=== PATIENT | male | born 1940 | race Caucasian/White ===

== ENCOUNTER → 2016-11-08 | Outpatient (CLI) | payer OTHER, MEDICARE | LOC: MMPC 11:11 | PROVIDERS: ATTEND Internal Medicine | DX: I10 Essential (primary) hypertension (principal); E78.5 Hyperlipidemia, unspecified; R60.0 Localized edema; Z86.718 Personal history of other venous thrombosis and embolism | CPT/HCPCS: 99214; G0463 ==

== ENCOUNTER 2017-10-18 12:52 | Inpatient (IN) ==
[2017-10-18] MEDS ORDERED: NORMAL SALINE 10 ML SYRINGE FLUSH IVP PRN ×2 (13:19→18:06)
[2017-10-18] MEDS ORDERED: ALBUTEROL SULFATE 2.5 MG/3 ML NEB PRN (13:19)
[2017-10-18 13:29] LABS: BASOPHILS # (AUTO) 0.02 10*3/UL; BASOPHILS % (AUTO) 0.2 % (0-1); EOSINOPHILS # (AUTO) 0.08 10*3/UL; EOSINOPHILS % (AUTO) 0.7 % (0-8); Hematocrit [HCT] 43.9 % (42.0-52.0); Hemoglobin [HGB] 15.3 g/dL (14.0-18.0); LYMPHOCYTES # (AUTO) 1.91 10*3/uL; MEAN CORPUSCULAR HEMOGLOBIN 35.3 PG (27-31); MEAN CORPUSCULAR HGB CONC 34.9 g/dL (33-37); MEAN CORPUSCULAR VOLUME 101.4 FL (80-90); MEAN PLATELET VOLUME 11.4 FL (7.4-12.2); MONOCYTES # (AUTO) 1.56 10*3/UL (0.3-0.8); MONOCYTES % (AUTO) 13.1 % (5-15); NEUTROPHILS # (AUTO) 8.24 10*3/UL; NEUTROPHILS % (AUTO) 69.2 % (50-80); RED BLOOD COUNT 4.33 10^6/uL (4.70-6.10)
[2017-10-18 13:30] LABS: PLATELET MORPHOLOGY COMMENT NORMAL MORPHOLOGY (NORM); RBC MORPHOLOGY COMMENT NORMAL MORPHOLOGY (NORM)
[2017-10-18 13:33] LABS: BLOOD UREA NITROGEN 18 mg/dL (7-22); SERUM ALBUMIN 4.1 g/dL (3.5-4.8)
--- NOTE | 2017-10-18 13:38 | EKG ---
[address] [address] Measurements Intervals [place] Rate: 98 P: 35 ME: 169 QRS: 117 QRSD: 152 T: -6 QT: 359 QTc: 415 Interpretive Statements SINUS RHYTHM RIGHT BUNDLE BRANCH BLOCK [120+ ms QRS DURATION, UPRIGHT V1, 40+ ms S IN I/aVL/V4/V5/V6] LEFT POSTERIOR FASCICULAR BLOCK [QRS AXIS > 109, INFERIOR Q] MODERATE T-WAVE ABNORMALITY, CONSIDER ANTEROLATERAL ISCHEMIA [-0.1+ mV T WAVE IN V3-V6] Compared to ECG 07/07/2014 10:03:43 T-wave abnormality now present Possible ischemia now present Indeterminate axis no longer present Electronically Signed On 10-19-17 10:23:17 MDT by Roberto Henry MD [id number]
[2017-10-18 13:45] LABS: WBC MORPHOLOGY COMMENT SEE COMMENTS (NORM)
[2017-10-18 13:48] LABS: VENOUS PH 7.43 (7.32-7.42)
--- NOTE | 2017-10-18 14:27 | DI ---
PA /LATERAL CHEST, 10/18/2017 1:19 PM : Clinical History: Dyspnea. Previous Exam: 01/04/2010. There is no acute soft tissue or bony abnormality. There is cardiomegaly without CHF. A small left pl eural effusion is present along with bibasilar atelectasis. Mediastinal structures are normal. There are no pulmonary nodules. Reading: Left lower lobe atelectasis with a small left pleural effusion. There is also mild right lower lobe a telectasis.
[2017-10-18] MEDS ORDERED: ENOXAPARIN SODIUM 100 MG/1 ML SYRINGE SUBCUT ONE (16:37)
--- NOTE | 2017-10-18 16:59 | DI ---
CT ANGIOGRAM OF THE CHEST, 10/18/2017 2:57 PM : Clinical History: Dyspnea. Elevated D-dimer test. Previous Exam: None at this facility. Scans are performed from the base of the neck to the lower lung bases with IV contrast. 65 mL of Isov ue 370 was injected IV. Proprietary automated bolus tracking software was used to verify the timing o f the injection. The base of the neck and thoracic inlet are normal. There are no abnormal axillary, supraclavicular, mediastinal, or hilar nodes. There is dilatation of the right heart in the right ventricular chamber sizes larger than the left. Coronary artery calcifications are present in the LAD, left circumflex ar braydon, and the right coronary artery. There is pulmonary arterial hypertension with evidence of pulmon ravin emboli in both main pulmonary arteries and branches to all lobes. There is a "saddle embolus" of small caliber in the main right and left pulmonary artery branches. There is a small left pleural eff usion with a wedge-shaped infiltrate that is pleural-based in the lingular segment and in what probab ly is the left posterobasal segment, consistent with pulmonary infarcts. There is a low-density 3 cm lesion in the dome of the right lobe of the liver posteriorly consistent with a cyst. The adrenal gla nds and the spleen are normal. READIN. Acute pulmonary embolism with presence of emboli in both main pulmonary arteries and all branches to the lungs bilaterally with pulmonary arterial hypertension and dilatation of the right ventricle. This would suggest acute cor pulmonale. There are pulmonary infarcts in the left lower lobe and ling ular segment. 2. Coronary artery disease with punctate calcifications in the LAD, right coronary artery, left circ umflex artery. 3. 3 cm cyst of the right lobe of the liver.
--- NOTE | 2017-10-18 17:26 | DI ---
VENOUS DOPPLER ULTRASOUND OF BOTH LOWER EXTREMITIES, 10/18/2017 3:06 PM: Clinical History: Leg swelling. Elevated D-dimer test. The patient does have pulmonary embolism with infarction. Previous Exam: Comparison is made with a venous Doppler ultrasound of the left lower terminate from . Technique: 2D real-time imaging is supplemented with color Doppler ultrasound. Compression and augmen tation maneuvers were performed. The deep venous system from the groin to the popliteal fossa for the right leg is normal. The right g reater saphenous vein is also normal. There is edema of the subcutaneous fat in the lower leg. There is acute clot in the left superficial femoral vein from the groin to the popliteal vein. On the previous exam, there was evidence of chronic clot in the region of the popliteal vein, but the super ficial femoral vein was normal from Deep's canal to the groin. There is edema in the subcutaneous t issues in the lower leg. The greater saphenous vein is patent. Readin. There is acute clot from Deep's canal to the groin in the left superficial femoral vein, and th is is new since the previous exam. 2. No clot is seen in the deep venous system of the right leg from the groin to the popliteal fossa.
[2017-10-18 17:39] VITALS: RESP 36; TEMP 98.9
[2017-10-18 17:44] VITALS: BP 130/77
[2017-10-18] MEDS ORDERED: CALCIUM CARBONATE 500 MG (TUMS) CHEWABLE TABLET PO PRN (18:06)
[2017-10-18] MEDS ORDERED: LIDOCAINE W/ SODIUM BICARB 0.5 ML SYR SUBD PRN (18:06)
--- NOTE | 2017-10-18 18:11 | PDOC ---
HPI - History of Present Illness Date of Service: 10/18/17 Time of Service: 18:00 Chief Complaint: Shortness of breath of 3-4 weeks duration, swelling in the left leg of 3 days duration History of Present Illness: This is a 76 years old male with medical history significant for history of psoriasis, hypercholesterolemia and history of for DVT back in 2014 was on Xarelto for a year and a half, now just on an aspirin who presented to the hospital with history of shortness of breath that started about 3-4 weeks progressively getting worse with exertion. Now he said he would walk 60 feet and he feels short of breath and need to stop. Did report some chest pain on felt in the left side of the chest worse with taking deep breath. In addition he did note his the last few days some sweling in the left leg. Because of all the symptoms he came into the ER in the ER he was found to have bilateral PE and pulmonary infarct on the left in addition he had DVT in the left leg was giving Lovenox and he was admitted. He said he feels better compared to when he came in his breathing is better after they started him on the oxygen. He is denying other symptoms. Past Medical History Medical History: 1. History of for left DVT in 2014 was on Xarelto for a year and a half. This was DC'd and replaced with aspirin 325 mg a day. 2. History of psoriasis. 3. Hypercholesterolemia. 4. Hypertension however he is not on medications now Surgical History: 1. History of cataract surgery Family History: Reviewed an Not Pertinent Past Social History: A small, no drugs doesn't drink. 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 Tobacco Use: Never Smoker In the Past 12 Months, Have Used or Abuse Any of the Following Substance: None Alcohol Use: None Medication / Allergies Home Medications: Home Medications 3 Medication Instructions Recorded Confirmed Type hydrocodone 5 mg-acetaminophen 325 1 - 2 tab PO Q4H PRN #60 tab 05/10/17 Rx mg tablet ramipril 10 mg capsule 10 mg PO BID #180 cap 05/10/17 10/18/17 Rx Ixekizumab [Taltz Syringe] 80 mg IM WEEKLY 10/18/17 10/18/17 History Rosuvastatin Calcium [Crestor] 5 mg PO DAILY 10/18/17 10/18/17 History Allergies/Adverse Reactions: Allergies 3 Allergy/AdvReac Type Severity Reaction Status Date / Time No Known Allergies Allergy Verified 10/18/17 12:54 Review of Systems - Review of Systems All Systems: Reviewed & No Additional Complaints Except as Stated Exam - Vitals Vital Signs: Vital Signs Temperature 98.9 F Temperature Source Temporal Artery Scan Pulse Rate [Pulse Oximeter 87 Right] Pulse Rate 87 Respiratory Rate 36 Blood Pressure [Left Arm] 130/77 Blood Pressure 101/68 Pulse Ox 92 Oxygen Flow Rate 2.5 Oxygen Delivery Method Nasal Cannula Height 5 ft 10 in Weight 207 lb 12.8 oz - General General Appearance: No Acute Distress, Cooperative, Obese - Head Head Exam: Normal Inspection, Atraumatic - Eye Eye Exam: POSITIVE: Normal Appearance - ENT ENT Exam: POSITIVE: Normal Exam - Neck Neck Exam: Normal Inspection - Respiratory Respiratory Exam: POSITIVE: Clear to Auscultation - Bilaterally - Cardiovascular Cardiovascular Exam: POSITIVE: RRR - GI/Abdominal GI/Abdominal Exam: POSITIVE: Normal Bowel Sounds, Non Tender, Non Distended, Soft, No Organomegaly - Rectal Rectal Exam: POSITIVE: Deferred - External Exam: POSITIVE: Deferred Exam: POSITIVE: Deferred - Extremities Additional Extremities Exam Details: Edema noted in both legs swelling more in the left compared to the right. - Back Back Exam: POSITIVE: Normal Inspection - Neurological Neurological Exam: POSITIVE: Alert, Oriented x 3, CN II-XII Intact, Moves All Extremities Equally - Psychiatric Psychiatric Exam: POSITIVE: Normal Affect - Integumentary Additional Integumentary Exam Details: Thin skin noted with multiple bruises noted in the upper extremities. Also some bruising noted on the chest. He said these happen to him frequently. Results - Labs CBC and BMP: 10/18/17 13:29 10/18/17 13:29 Assessment and Plan - Patient Problems (1) Bilateral pulmonary embolism Current Visit: Yes Status: Acute Comment: He received Lovenox in the ER, I looked at his CT and with elevated the BNP and troponin he would probably fall into the category of submassive PE. His blood pressure though is more than 90 systolic, he is denying dizziness or lightheadedness. He does not appear in distress. We will order an echocardiogram for him tomorrow. I think I will continue with the Lovenox. But I will discuss it with the pulmonology in [place] and see if they have other opinion. Code(s): I26.99 - Other pulmonary embolism without acute cor pulmonale (2) DVT (deep venous thrombosis) Current Visit: No Status: Acute Comment: He received Lovenox will continue with it. See discussion above. Code(s): I82.409 - Acute embolism and thrombosis of unspecified deep veins of unspecified lower extremity (3) Hypercholesterolemia Current Visit: Yes Status: Acute Comment: Continue Crestor Code(s): E78.00 - Pure hypercholesterolemia, unspecified
[2017-10-18] MEDS ORDERED: ACETAMINOPHEN 325 MG TABLET PO PRN (18:26)
[2017-10-18 18:58] VITALS: O2SAT 94
--- NOTE | 2017-10-18 19:27 | DCSUMMARY ---
Hospitalization Summary Admit Date: 10/18/2017 Discharge Date: 10/18/17 Hospital Course: Transfer diagnoses 1. Acute pulmonary embolism with presence of emboli in both main pulmonary arteries and all branches to the lungs bilaterally 2. Pulmonary arterial hypertension and dilatation of the right ventricle suggests an acute cor pulmonale 3. Pulmonary infarcts in the left lower lobe and lingular segment 4. Acute clot from Deep's canal to the groin in the left superficial femoral vein, and this is new. 5. History of previous DVT 6. History of psoriasis 7. History of hypertension Hospital course This is a 76 years old male with medical history significant for history of psoriasis, hypercholesterolemia and history of for DVT back in 2014 was on Xarelto for a year and a half, now just on an aspirin who presented to the hospital with history of shortness of breath that started about 3-4 weeks progressively getting worse with exertion. Now he said he would walk 60 feet and he feels short of breath and need to stop. Did report some chest pain on felt in the left side of the chest worse with taking deep breath. In addition he did note his the last few days some sweling in the left leg. Because of all the symptoms he came into the ER in the ER he was found to have bilateral PE and pulmonary infarct on the left in addition he had DVT in the left leg was given Lovenox and he was admitted. He said he feels better compared to when he came in his breathing is better after they started him on the oxygen. He is denying other symptoms. When I saw him he did not appear in distress he was hemodynamically stable he was on 2 L of oxygen. I did review the CT and there is large clot burden with saddle component to the PE, in addition there is dilatation of the right ventricle, there is also DVT. Because of all these findings I did speak with the science job titles at [facility] and she recommended an IVC filter because of the large clot burden. Unfortunately we don't do this procedure here so I spoke with the patient about transfer and he agreed. I did speak with the hospitalist Dr. Hazel and she accepted the patient and the patient will be transferred there. Abnormal Lab Results (Last 24 Hours) Range/Units 10/18/17 10/18/17 10/18/17 13:09 13:22 13:29 WBC (4.8-10.8) 10^3/uL RBC (4.70-6.10) 10^6/uL MCV (80-90) FL MCH (27-31) PG [place] # (Auto) (0.3-0.8) 10*3/UL D-Dimer (0.00-0.59) mg/L VBG pH (7.32-7.42) 7.43 H VBG pCO2 (45-55) mmHg 31 L VBG HCO3 (22-26) mmol/L 21 L VBG Base Excess (-2-2) MMOL/L -4 L Potassium (3.8-5.2) meq/L Chloride (98-112) meq/L Carbon Dioxide (23-33) meq/L Glucose (78-110) mg/dL Total Bilirubin (0.3-1.2) mg/dL AST (21-57) IU/L Troponin I (< 0.040) ng/mL 0.066 H C-Reactive Protein (0.0-0.9) mg/dL 22.2 H NT-Pro-B Natriuret Pep (0-450) PG/ML 4560 H Range/Units 10/18/17 10/18/17 10/18/17 13:29 13:29 13:29 WBC (4.8-10.8) 10^3/uL 11.89 H RBC (4.70-6.10) 10^6/uL 4.33 L MCV (80-90) FL 101.4 H MCH (27-31) PG 35.3 H [place] # (Auto) (0.3-0.8) 10*3/UL 1.56 H D-Dimer (0.00-0.59) mg/L 5.34 H VBG pH (7.32-7.42) VBG pCO2 (45-55) mmHg VBG HCO3 (22-26) mmol/L VBG Base Excess (-2-2) MMOL/L Potassium (3.8-5.2) meq/L 3.6 L Chloride (98-112) meq/L 97 L Carbon Dioxide (23-33) meq/L 22 L Glucose (78-110) mg/dL 119 H Total Bilirubin (0.3-1.2) mg/dL 1.3 H AST (21-57) IU/L 15 L Troponin I (< 0.040) ng/mL C-Reactive Protein (0.0-0.9) mg/dL NT-Pro-B Natriuret Pep (0-450) PG/ML Transfer instruction Diet regular Activity bedrest Medications Active Medications Acetaminophen (Tylenol) 650 mg PO Q6H PRN PRN Reason: Pain Atorvastatin Calcium (Lipitor) 10 mg PO BEDTIME [place] Calcium Carbonate (Tums) 1 - 2 tab PO QID PRN PRN Reason: Heartburn Enoxaparin Sodium (Lovenox Inj) 100 mg SUBCUT Q12H [place] Sodium Chloride (Normal Saline 0.9%) 25 mls @ 200 mls/hr IV .Post Infusion PRN PRN Reason: Flush Lidocaine HCl (Lidocaine Buffered Inj) 0.5 ml SUBD ONCE PRN PRN Reason: IV Starts Sodium Chloride (Saline Flush) 5 - 20 ml IVP BID PRN PRN Reason: Flush Condition at transfer stable for transfer Exam - Vitals Vital Signs: Vital Signs Temperature 98.9 F Temperature Source Temporal Artery Scan Pulse Rate [Pulse Oximeter 87 Right] Pulse Rate 87 Respiratory Rate 36 Blood Pressure [Left Arm] 130/77 Blood Pressure 101/68 Pulse Ox 94 Oxygen Flow Rate 2.5 Oxygen Delivery Method Nasal Cannula Height 5 ft 10 in Weight 207 lb 12.8 oz Patient Problems - Patient Problem List (1) Bilateral pulmonary embolism Current Visit: Yes Status: Acute Code(s): I26.99 - Other pulmonary embolism without acute cor pulmonale Category: Medical (2) DVT (deep venous thrombosis) Current Visit: No Status: Acute Code(s): I82.409 - Acute embolism and thrombosis of unspecified deep veins of unspecified lower extremity Category: Medical (3) Hypercholesterolemia Current Visit: Yes Status: Acute Code(s): E78.00 - Pure hypercholesterolemia , unspecified Category: Medical
[2017-10-18] MEDS ORDERED: ATORVASTATIN 10 MG TABLET PO SCH (21:00)
--- NOTE | 2017-10-19 03:00 | PDOC ---
Dyspnea HPI - General Chief Complaint: Dyspnea Stated Complaint: short of breath Date Seen by Provider: 10/18/17 Time Seen by Provider: 13:10 Source: POSITIVE: Patient, Spouse Exam Limitations: POSITIVE: No limitations Treatment Prior to Arrival: REPORTS: None Nurse's Notes Reviewed & Considered: Yes - History of Present Illness Initial Comments: The patient is a 76-year-old male. He presents to the emergency room along with his . He states that for the last 3 days he has had some dyspnea, especially with exertion. He also complains of some discomfort in the left scapular area. He furthermore complains of some discomfort to the left lower leg and some bilateral pedal edema. Patient states that he was treated for a left leg deep vein thrombosis 3 years ago. No fevers or chills. No known cardiac problems. He takes 325 mg of aspirin daily. He takes Ramapril for hypertension. He also takes Crestor. He does not smoke Body Location Affected: REPORTS: Lower Extremity (L), Lower Extremity (R), Chest Timing: REPORTS: Constant Duration: >24 hours (3 days) Severity: Moderate Quality: REPORTS: "Pain" (Some left subscapular discomfort. Pain left lower leg ) Initiating Event: DENIES: Upper Respiratory Illness, Out of Medications, Sports , Exercise, Aspiration, Choking, Allergy, Exposure - Smoke, Exposure - Mold, Exposure - Other Allergen Context: REPORTS: Exertion (Dyspnea with exertion). DENIES: Sleep, Rest, Emotional Upset, Activity, Other Exacerbated By: REPORTS: Exertion Associated Symptoms: REPORTS: Leg Pain (Left greater than right), Leg Swelling ( Left greater than right). DENIES: Fever, Chills, Sweating, Chest Pain, Chest Discomfort, Left Chest, Right Chest, Central Chest, Chest Heaviness, Chest Tightness, Painful Breathing, Radiation to Back, Radiation to Jaw, Radiation to Arm, Bloody Cough, Productive Cough, Heart Racing, Calf Pain, Ankle Swelling, Dizziness, Light-Headedness, Anxiety, Tingling - Hands, Tingling - Face, Muscle Spasms - Hands, Muscle Spasms - Feet Similar Symptoms Previously: Yes Recently seen/treated/hospitalized: No Any Prior Injuries Related to Current Complaint?: No - Patient Home Medications Home Medications: Home Medications hydrocodone 5 mg-acetaminophen 325 mg tablet 1 - 2 tab PO Q4H PRN #60 tab ramipril 10 mg capsule 10 mg PO BID #180 cap 05/10/17 Ixekizumab [Taltz Syringe] 80 mg IM WEEKLY 10/18/17 Rosuvastatin Calcium [Crestor] 5 mg PO DAILY 10/18/17 - Patient Allergies Allergies/Adverse Reactions: Allergies 3 Allergy/AdvReac Type Severity Reaction Status Date / Time No Known Allergies Allergy Verified 10/18/17 12:54 Past Medical History - heen HEENT History: Denies History Cardiovascular History: Hypertension, Hyperlipidemia, Other (please comment) Additional Cardiovasular History: RIGHT BBB AND IRREGULAR HEART BEAT (SKIPPED BEATS). Respiratory History: Pneumonia Gastrointestinal History: Denies History Genitourinary History: Denies History Endocrine History: Denies History Musculoskeletal History: Other (please comment) Prosthesis or Implant: No Additional Musculoskeletal History: DVT Neurological History: Denies History Blood Disorders: Other (please comment) Additional Blood Disorders History: DVT to LLE Psychiatric History: Denies History History of Sexually Transmitted Diseases: No Male Reproductive History: Denies History Cancer History: Denies History In Past Year Been Physically Harmed or Verbally Threatened: No History of MDRO: No History of Other Communicable Diseases: No Tobacco Use: Never Smoker Alcohol Use: Occasionally Type of alcohol normally used: Wine In the Past 12 Months, Have Used or Abuse Any Substance: None Previous Surgical History: No Significant Family History: Heart disease, Cancer Past Medical History Reviewed: Reviewed - No Changes ROS - Limitations ROS Limitations: No Limitations Constitution: REPORTS: Denies Symptoms Cardiovascular: REPORTS: Edema (Bilateral pedal edema) Respiratory: REPORTS: Shortness Of Breath Neurological: REPORTS: Denies Neuro Symptoms Gastrointestinal: REPORTS: Denies GI Symptoms Endocrine: REPORTS: Denies Symptoms Musculoskeletal: REPORTS: Denies MS Symptoms Genitourinary: REPORTS: Denies Symptoms Eyes: REPORTS: Denies Symptoms ENT: REPORTS: Denies Symptoms Skin: REPORTS: Denies Skin Symptoms Lympathic: REPORTS: Denies Lympathic Symptoms Immunologic: POSITIVE: Denies Symptoms Psychiatric: POSITIVE: Denies Psych Symptoms Dyspnea Physical Exam - General Appearance General Appearance: REPORTS: Alert, Cooperative, No Acute Distress, No Evidence of Trauma - HEENT HEENT: POSITIVE: Head Inspection Nml, Eyes Inspection Nml, Ears Inspection Nml, Nose Inspection Nml, Oral/Dental Inspect. Nml, Pharynx Inspect. Nml, PERRL, EOMI - Neck Neck: REPORTS: Normal Inspection, No Carotid Bruit - Respiratory Respiratory: REPORTS: No Respiratory Distress, Breath Sounds Normal, No Pleuritic Chest Pain, Speaks Full Sentences, No Pain on Inspiration - Cardiovascular Cardiovascular: REPORTS: Regular Rate and Rhythm, Heart Sounds Normal, Equal Pulses, Strong Pulses, No Murmur, No Gallop, No Friction Rub, No JVD Peripheral Pulses: Radial (R): 2+, Radial (L): 2+, Dorsalis-pedis (R): 2+, Dorsalis-pedis (L): 2+ - Abdomen Abdomen: Soft: (All Quadrants), Normal Bowel Sounds: (All Quadrants), Denies Tenderness: (All Quadrants), No Splenomegaly: (All Quadrants), No Hepatomegaly: (All Quadrants), No Guarding: (All Quadrants), No Rebound: (All Quadrants), No Palpable Pulse: (All Quadrants), No Palpabale Mass: (All Quadrants), No Distention: (All Quadrants), No Rigidity: (All Quadrants) - Skin Skin: REPORTS: Intact, Normal For Race, Warm, Dry, No Rash - Extremities Extremity: Non-Tender: (RUE), (LUE), (RLE), Normal ROM: (All Extremities), Normal Inspection: (All Extremities), Pelvis Stable: (All Extremities), Normal Tendon Exam: (All Extremities), Edema / Swelling: (LLE), (RLE), Calf Tenderness : (LLE), Positive Rafael's Sign: (LLE) Additional Extremities Details: Examination of legs show some pedal edema bilaterally. Patient has some pain on palpation over the left calf and the circumference of the left calf is somewhat greater than the right. 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 Tenderness on palpation left calf with positive Homans signs. 2 - Mild pedal edema Dyspnea Progress - Results Reviewed by me Xrays/CTs/US Reviewed by me: Yes Discussed with Radiologist: Yes Radiology Findings: Chest x-ray read by radiologist to show left lower lobe atelectasis with small left pleural effusion; small right lower lobe atelectasis. Venous duplex ultrasound of right leg normal. Venous duplex ultrasound left leg shows a DVT. CTA chest shows bilateral pulmonary emboli. Lab Results Reviewed by Me: Yes (d-dimer 5.34; troponin 0.066 BNP 4560) CBC and BMP: 10/18/17 13:29 10/18/17 13:29 EKG Interpreted/Reviewed By Me:: Yes (right bundle-branch block with T-wave inversion V1 through V5) EKG Interpretation:: POSITIVE: Normal Sinus Rhythm, Normal Rate, Abnormal EKG. NEGATIVE: Normal Intervals (Right bundle-branch block), Normal [place], Normal QRS , Normal ST/T (T-wave inversion V1 through V5) - Patient's Progress Pain Medication Addressed: POSITIVE: Not Applicable School/Work Release Addressed: POSITIVE: Not Applicable Re-Examine Time: 16:30 Re-Examine Comment: Patient given 100 mg of Lovenox subcutaneously Status: POSITIVE: Unchanged, Re-Examined Air Movement: POSITIVE: Fair (Venous blood gas normal) - Consult Consult (If Yes, Name of Consulting MD & Time Called): Yes (Dr. Silva, hospitalist, [id number]) Consulting MD will see pt:: POSITIVE: [facility] Admit Counseled: POSITIVE: Patient, Family, RE: Lab Results, RE: Radiology Results, RE : DX, RE: Need for F/U Patient Care Time - Estimated PCT Patient Care Time (In Minutes): 60 Vital Signs - VS Reviewed Vital Signs Reviewed: Yes Discharge Clinical Impression: Pulmonary embolism, DVT (deep venous thrombosis) Discharge Disposition: Admit to Inpatient Condition: Fair Date Decision to Admit to Inpatient: 10/18/17 Time Decision to Admit to Inpatient: 16:35
[2017-10-19] MEDS ORDERED: ENOXAPARIN SODIUM 100 MG/1 ML SYRINGE SUBCUT SCH (04:50)
== END 2017-10-18 20:09 | disposition short-term general hospital (02) | DRG 176 ==
LOC: ER 12:52 → MED/SURG 17:08
PROVIDERS: ADMIT Internal Medicine; ATTEND Internal Medicine